=== PATIENT | male | born 2005 | race Two or more races ===

== ENCOUNTER 2023-07-28 08:48 | Inpatient (IN) | payer OTHER ==
[2023-07-28 08:56] VITALS: BMI 29.7
[2023-07-28] MEDS ORDERED: FAMOTIDINE 20 MG/50 ML IVPB 20 MG/50 ML MG IVPB ONE (09:02)
[2023-07-28] MEDS ORDERED: ONDANSETRON 4 MG/2 ML VIAL ONE (09:02)
[2023-07-28] MEDS: SODIUM CHLORIDE 0.9% 1000 ML INFUS.BAG IV ONE (09:12)
[2023-07-28] MEDS: FAMOTIDINE 20 MG/50 ML IVPB 20 MG/50 ML MG IVPB ONE (09:12)
[2023-07-28] MEDS: ONDANSETRON 4 MG/2 ML VIAL IVPUSH ONE (09:12)
[2023-07-28 09:32] LABS: MCH 25.4 pg (25.7-33.7); MCHC 32.7 g/dl (32.0-35.9); MEAN CELL VOLUME 77.7 fl (80-96); MEAN PLT VOLUME 9.8 fl (7.5-11.1); RDW 14.7 % (11.9-15.9); WHITE BLOOD COUNT 15.5 10^3/uL (4.0-10.8)
[2023-07-28 09:44] LABS: ALBUMIN 5.3 g/dl (3.4-5.0); BILIRUBIN,TOTAL 0.7 mg/dl (0.2-1); CALCIUM 10.6 mg/dl (8.5-10.1); CREATININE 0.9 mg/dl (0.6-1.3); POTASSIUM 4.1 mmol/L (3.5-5.1); TOT PROT 8.8 g/dl (6.4-8.2)
[2023-07-28 10:17] LABS: PLATELET ESTIMATE ADEQUATE
[2023-07-28] MEDS ORDERED: ACETAMINOPHEN INJECTION 100 ML IVPB ONE (12:42)
[2023-07-28] MEDS: ACETAMINOPHEN 1000 MG/100 ML BAG IVPB ONE (12:49)
[2023-07-28] MEDS ORDERED: ACETAMINOPHEN 1000 MG/100 ML BAG IVPB PRN (17:11)
[2023-07-28] MEDS: PANTOPRAZOLE SODIUM 40 MG VIAL IVPUSH SCH (17:36)
[2023-07-28] MEDS: LACTATED RINGERS SOLUTION 1,000 ML/1,000 ML INFUS.BAG IV SCH (17:36)
[2023-07-28] MEDS: METOCLOPRAMIDE HCL INJECTION 10 MG/2 ML VIAL IVPUSH PRN (18:28)
[2023-07-29 02:15] VITALS: RESP 18
[2023-07-29 09:04] LABS: ALBUMIN 4.8 g/dl (3.4-5.0); BILIRUBIN,TOTAL 0.7 mg/dl (0.2-1); POTASSIUM 3.8 mmol/L (3.5-5.1); TOT PROT 7.8 g/dl (6.4-8.2)
[2023-07-29 09:06] LABS: BASO % 0.2 % (0-2.0); EOS % 0.2 % (0-4.5); HEMATOCRIT 43.3 % (35.4-49); HEMOGLOBIN 14.6 GM/dL (11.7-16.9); LYMPH % 5.4 % (8-40); MCH 25.4 pg (25.7-33.7); MCHC 33.7 g/dl (32.0-35.9); MEAN CELL VOLUME 75.4 fl (80-96); MEAN PLT VOLUME 9.5 fl (7.5-11.1); MONO % 17.2 % (3.8-10.2); PLATELET COUNT 252 10^3/uL (134-434); RBC 5.74 M/mm3 (4.00-5.60); RDW 13.2 % (11.9-15.9); WHITE BLOOD COUNT 8.7 K/mm3 (4.0-10.0)
[2023-07-29 09:45] VITALS: BP 137/57; PULSE 72; TEMP 98
== END 2023-07-29 12:20 | disposition home or self-care (01) | DRG 723 ==
LOC: FER 08:48 → FM/S 13:12 → OBSVTOIN 16:52
DX: J10.2 Influenza due to other identified influenza virus with gastrointestinal manifestations (principal); R11.2 Nausea with vomiting, unspecified
CPT/HCPCS: 0241U-QW; 36415; 74019-TC-FY; 74177-TC; 80053; 83690; 85025; 99285-25; G0378; J0131; Q9967

== ENCOUNTER 2023-07-30 07:03 | Emergency (ER) | payer OTHER ==
[2023-07-30 07:19] VITALS: BP 132/77; PULSE 77; RESP 20; TEMP 98; BMI 30.4
[2023-07-30] MEDS ORDERED: MAG HYDROX/AL HYDROX/SIMETH 30 ML UNIT-DOSE CUP ONE (07:31)
[2023-07-30] MEDS ORDERED: FAMOTIDINE 20 MG TABLET ONE (07:31)
[2023-07-30] MEDS ORDERED: ONDANSETRON *ODT* 4 MG TABLET ONE (07:31)
[2023-07-30] MEDS: MAG HYDROX/AL HYDROX/SIMETH 30 ML UNIT-DOSE CUP PO ONE (07:32)
[2023-07-30] MEDS: ONDANSETRON *ODT* 4 MG TABLET SL ONE (07:33)
[2023-07-30] MEDS: FAMOTIDINE 20 MG TABLET PO ONE (07:33)
== END 2023-07-30 08:27 | disposition home or self-care (01) ==
LOC: FER 07:03
DX: R10.13 Epigastric pain (principal); R19.7 Diarrhea, unspecified; R11.2 Nausea with vomiting, unspecified
CPT/HCPCS: 99283-25; Q0162